=== PATIENT | male | born 1975 | race African-American/Black ===

== ENCOUNTER 2020-09-20 17:13 | Emergency (ER) | payer OTHER ==
[~2020-09-20] VITALS: Ht 175.3 cm; Wt 81.7 kg
[2020-09-20] MEDS ORDERED: FLEXERIL PO (19:36)
[2020-09-20] MEDS ORDERED: IBU600 MG PO (19:36)
== END 2020-09-20 20:22 | disposition home or self-care (01) ==
LOC: ER 17:13
DX: S16.1XXA Strain of muscle, fascia and tendon at neck level, initial encounter (principal); S80.02XA Contusion of left knee, initial encounter; V49.88XA Car occupant (driver) (passenger) injured in other specified transport accidents, initial encounter; Y93.89 Activity, other specified; Y92.481 Parking lot as the place of occurrence of the external cause; Y99.8 Other external cause status